=== PATIENT | female | born 1950 | race Asian ===

== ENCOUNTER 2016-10-20 09:06 | Emergency (ER) | payer MEDICARE ==
--- NOTE | 2016-10-20 09:49 | ED Physician Chart ---
Chief Complaint/HPI - Patient Information Date Seen:: 10/20/16 Time Seen:: 09:35 Chief Complaint:: abdominal pain History of Present Illness:: patient has had LUQ abdominal pain for three days. She vomited once ("water"). No diarrhea. Patient has been constipated for 3 days. No dysuria. Allergies:: Allergies Allergy/AdvReac Type Severity Reaction Status Date / Time No Known Allergies Allergy Verified 10/20/16 09:23 Vitals:: Vital Signs - 8 hr 10/20/16 09:24 Temp 99.5 F HR 80 RR 16 BP 147/72 O2 Sat % 97 Historian:: Patient Review:: Nurse's Note Reviewed Review of Systems - Review of Systems General/Constitutional: No fever, No chills Skin: No skin lesions Head: No headache Eyes: No loss of vision ENT: No earache Neck: No neck pain Cardio Vascular: No chest pain, No palpitations GI: Vomiting, Pain G/U: No dysuria Musculoskeletal: No bone or joint pain, No back pain, No muscle pain Psychiatric: No prior psych history, No depression Hematopoietic: No bruising Allergic/Immuno: No urticaria Neurological: No syncope, Focal symptoms Past Medical History - Past Medical History Past Medical History: HTN Family History: HTN Social History: Non Smoker, Alcohol, Other (drinks an occasional beer only) Surgical History: None Psychiatricy History: None Medication: Reviewed Family Medical History - Family Member Mother Living Status: Still Living Other Medical History: no med. prob. Physical Exam - Physical Examination General/Constitutional: Well-developed, well-nourished, Alert Head: Atraumatic Eyes: Lids, conjuctiva normal, PERRL Skin: Nl inspection, No rash, No skin lesions, No ecchymosis ENMT: External ears, nose nl, Lips, teeth, gums nl, Oropharynx nl Neck: No nuchal rigidity Respiratory: Nl effort/Exclusion, Clear to Auscultation, No Wheeze/Rhonchi/Rales Cardio Vascular: RRR GI: No organomegaly, No hernia, Normal BS's, Nondistended, No mass/bruits Other GI comments:: LUQ tenderness : No CVA tenderness Extremities: Normal digits & nails Neuro/Psych: No focal deficits Misc: Normal back Labs/Radiology/EKG Results - Lab Results Results: Laboratory Results - last 24 hr 10/20/16 10/20/16 10/20/16 09:20 09:20 10:00 WBC 6.3 RBC 4.17 Hgb 11.1 L Hct 33.2 L MCV 79.5 L MCH 26.5 L MCHC Differential 33.4 RDW 15.3 Plt Count 190 MPV 7.6 Neutrophils % 76.4 Lymphocytes % 9.6 L Monocytes % 13.4 H Eosinophils % 0.5 Basophils % 0.1 Sodium 134 L Potassium 4.1 Chloride 104 Carbon Dioxide 22.8 Anion Gap 11.3 BUN 13 Creatinine 1.2 Est GFR ( Amer) 57.6 Est GFR (Non-Af Amer) 47.6 BUN/Creatinine Ratio 10.8 Glucose 119 H Calcium 9.8 Lipase 33 Urine Source CLEAN C Urine Color YELLOW Urine Clarity SL. CLOUDY Urine pH 6.5 Ur Specific [place] 1.020 Urine Protein NEGATIVE Urine Glucose (UA) NEGATIVE Urine Ketones NEGATIVE Urine Blood TRACE Urine Nitrate NEGATIVE Urine Bilirubin NEGATIVE Urine Urobilinogen 0.2 Ur Leukocyte Esterase NEGATIVE Urine RBC 0-1 Urine WBC 2-5 Ur Epithelial Cells FEW Urine Bacteria NONE SEEN - Radiology Results Results: KUB: stool filled non-dilated large bowel; possible left ureteral calculus. CT abdomen and pelvis (kidney stone protocol): 10 x 5 mm left ureteral calculus Assessment - Assessment General Assessment: cannot admit to this hospital because no urologist on staff. Patient so informed. Instructed to get referral to a urologist from her PMD. ED Septic Shock - . Is Septic Shock (SBP<90, OR Lactate>4 mmol\\L) present?: No - <6hrs of presentation: Vital Signs: Vital Signs - 8 hr 10/20/16 09:24 Temp 99.5 F HR 80 RR 16 BP 147/72 O2 Sat % 97 Reassessment (Disposition) - Reassessment Reassessment Condition:: Unchanged - Diagnosis Diagnosis:: left ureteral calculus; constipation; anemia - Aftercare/Follow up Instructions Aftercare/Follow-Up Instructions:: Refer to Discharge Instructions Medication Prescribed:: [place] #16 Sig 1/2-1 QID PRN - Patient Disposition Discharge/Transfer:: Home Condition at Disposition:: Stable, Unchanged
[2016-10-20 10:01] LABS: % BASOPHILS 0.1 % (0.0-2.0); % EOSINOPHILS 0.5 % (0.0-5.0); % LYMPHOCYTES 9.6 % (20.0-50.0); % MONOCYTES 13.4 % (2.0-10.0); % NEUTROPHILS 76.4 % (40.0-80.0); HEMATOCRIT 33.2 % (35.0-45.0); HEMOGLOBIN 11.1 gm/dL (11.7-16.1); MEAN CELL VOLUME 79.5 fl (81-100); MEAN CORPUSCULAR HEMOGLOBIN 26.5 pg (27.0-31.0); MEAN CORPUSCULAR HGB CONC 33.4 pg (28.0-36.0); MEAN PLATELET VOLUME 7.6 fl; NEUTROPHILE ABSOLUTE 4.9 Th/cmm (1.8-8.0); PLATELET COUNT 190 Th/cmm (150-400); RED BLOOD COUNT 4.17 Mil/cmm (3.80-5.20); RED CELL DISTRIBUTION WIDTH 15.3 % (11.5-20.0); WHITE BLOOD COUNT 6.3 Th/cmm (4.8-10.8)
[2016-10-20 10:15] LABS: ANION GAP 11.3 (7.0-16.0); BUN/CREATININE RATIO 10.8; CALCIUM SERUM 9.8 mg/dL (8.6-10.3); CARBON DIOXIDE 22.8 mEq/L (21.0-31.0); CREATININE - SERUM 1.2 mg/dL (0.6-1.2); POTASSIUM SERUM 4.1 mEq/L (3.5-5.1)
[2016-10-20 10:26] LABS: URINE BILIRUBIN NEGATIVE (NEGATIVE); URINE BLOOD TRACE (NEGATIVE); URINE COLOR YELLOW; URINE GLUCOSE (UA) NEGATIVE (NEGATIVE); URINE KETONE NEGATIVE (NEGATIVE); URINE PH 6.5; URINE PROTEIN NEGATIVE (NEGATIVE); URINE UROBILINOGEN 0.2 E.U./dL (0.2 - 1.0)
[2016-10-20 10:34] LABS: URINE BACTERIA NONE SEEN /hpf (NONE SEEN); URINE EPITHELIAL CELLS FEW /lpf (FEW); URINE RBC 0-1 /hpf (0-5)
--- NOTE | 2016-10-20 10:37 | Diagnostic Imaging Report ---
KUB abdominal film HISTORY: Pain Stool-filled nondilated large bowel is noted with an otherwise nonspecific appearance. No free intraperitoneal air. There is an approximate 1.0 x 0.5 cm oval-shaped calcification within the left lower mid abdomen. Exact relationship to the urinary tract is uncertain. A CT scan would provide additional clarification. Several punctate calcifications noted in lower pelvis probably related to phleboliths. Degenerative changes seen to the spine. IMPRESSION: 1. Stool-filled nondilated large bowel with an otherwise nonspecific appearance 2. Calcification left lower mid abdomen. Exact relationship to the urinary tract and exact etiology uncertain. If necessary, a CT scan would provide additional assessment.
--- NOTE | 2016-10-20 15:15 | Diagnostic Imaging Report ---
CT scan abdomen and pelvis without intravenous contrast HISTORY: Pain Total DLP equals 374 CTDI equals 8.1 Axial sections were obtained from the xiphoid process down to the pubic symphysis. The liver exhibits a homogeneous parenchyma. No focal lesions. The spleen appears normal. No focal amenities seen in the region of the pancreas. The right kidney appears normal. There is severe dilatation/hydronephrosis involving the left renal collecting system along with marked parenchymal loss. A 7 mm calcification is noted in the posterior cortex of the left kidney. Severe dilatation of the proximal portion of the left ureter associated with a 1.0 cm calculus situated within the midportion of the ureter. The exam of the pelvis demonstrates preservation of normal fat planes. No abnormal soft tissue masses or abnormal fluid collections. Atherosclerotic calcination seen in the aorta. Degenerative changes noted throughout the spine. IMPRESSION: 1. 1.0 cm calculus situated within the midportion of the left ureter associated with severe dilatation/hydronephrosis of the left renal collecting system. Severe parenchymal loss noted that may be associated with chronic change. 2. 7 mm calcification in the lower posterior cortex of the left kidney. 3. Atherosclerotic vascular changes
== END 2016-10-20 12:28 | disposition home or self-care (01) ==
LOC: ER 09:06
DX: N20.1 Calculus of ureter (principal); K59.00 Constipation, unspecified; D64.9 Anemia, unspecified; I10 Essential (primary) hypertension
CPT/HCPCS: 36415-UA; 74000-TC; 80048-TC; 81001-TC; 83690-TC; 85025-TC